=== PATIENT | female | born 1975 | race Caucasian/White ===

== ENCOUNTER 2019-08-25 19:04 | Emergency (ER) | payer SELFPAY ==
[~2019-08-25] VITALS: Ht 175.3 cm; Wt 126.4 kg
[2019-08-25] MEDS ORDERED: METH4TAB2 PO (21:05)
[2019-08-25] MEDS ORDERED: INDO50CA15 PO (21:05)
[2019-08-25] MEDS ORDERED: DOXY100C14 PO (21:05)
--- NOTE | 2019-08-25 21:05 | PHYS DOC ---
Past Medical History Past Medical History: No Pertinent History Past Surgical History: , Other Additional Past Surgical Histo: CARPAL TUNNEL SURGERY - BILATERAL WRISTS Smoking Status: Never Smoker Alcohol Use: None General Adult EDM: Chief Complaint: MULTIPLE COMPLAINTS HPI: HPI: Patient is a 43 year old female who presents with complaint of what she believes was an insect bite to her right forearm. She indicates that centrally there is a blister and surrounding it she has soft tissue swelling redness and a red halo around the site. She states that it has been painful. She denies any fever. She also complains of pain in her left shoulder that has been ongoing for the last couple of weeks and states that movement of the shoulder has become more and more painful. She denies any injuries to the shoulder. [] Review of Systems: Review of Systems: Constitutional: Denies fever or chills. [] Respiratory: Denies cough or shortness of breath. [] Cardiovascular: Denies chest pain or edema. [] Musculoskeletal: Complains of left shoulder pain. [] Integument: Complains of redness and warmth right forearm. [] Neurologic: Denies headache, focal weakness or sensory changes. [] Heart Score: Risk Factors: Risk Factors: DM, Current or recent (<one month) smoker, HTN, HLP, family history of CAD, obesity. Risk Scores: Score 0 - 3: 2.5% MACE over next 6 weeks - Discharge Home Score 4 - 6: 20.3% MACE over next 6 weeks - Admit for Clinical Observation Score 7 - 10: 72.7% MACE over next 6 weeks - Early Invasive Strategies Allergies: Allergies: Allergies Coded Allergies Type Severity Reaction Last Updated Verified No Known Drug Allergies 08/25/19 No Physical Exam: PE: Constitutional: Well developed, well nourished, no acute distress, non-toxic appearance. [] Neck: Normal range of motion, no tenderness, supple, no stridor. [] Cardiovascular: Regular rate and rhythm [] Lungs & Thorax: Bilateral breath sounds clear to auscultation [] Skin: Dorsal aspect of right forearm demonstrates an area measuring approximately 4 x 12 cm of soft tissue swelling, warmth, erythema and surrounded by reddish halo and small blister, centrally. [] Extremities: Examination of left shoulder demonstrates decreased range of motion due to pain. There is no tenderness in the shoulder [] Neurologic: Alert and oriented X 3, no focal deficits noted. [] Current Patient Data: Vital Signs: Vital Signs Date Time Temp Pulse Resp B/P (MAP) Pulse Ox O2 Delivery O2 Flow Rate FiO2 08/25/19 19:30 98.0 80 16 153/72 (99) 100 Room Air 98.0 EKG: EKG: [] Radiology/Procedures: Radiology/Procedures: [] Course & Med Decision Making: Course & Med Decision Making Pertinent Labs and Imaging studies reviewed. (See chart for details) [] Dragon Disclaimer: Dragon Disclaimer: This electronic medical record was generated, in whole or in part, using a voice recognition dictation system. Departure Departure Impression: Primary Impression: Insect bite Qualified Codes: S50.861A - Insect bite (nonvenomous) of right forearm, initial encounter; W57.XXXA - Bitten or stung by nonvenomous insect and other nonvenomous arthropods, initial encounter Additional Impression: Bursitis of left shoulder Disposition: HOME, SELF-CARE Condition: STABLE Referrals: NO PCP (PCP) Patient Instructions: Bursitis, Insect Bite, Shoulder Pain Scripts Doxycycline Monohydrate (DOXYCYCLINE MONOHYDRATE) 100 Mg Capsule 1 CAP PO BID, #20 CAP Prov: MARYAM PEREZ Jr. DO 08/25/19 Indomethacin (INDOMETHACIN) 50 Mg Capsule 1 CAP PO TID PRN for shoulder pain for 10 Days, #30 CAP 0 Refills with food Prov: MARYAM PEREZ Jr. DO 08/25/19 Methylprednisolone (MEDROL) 4 Mg Tab.ds.pk 1 PKG PO UD, #1 PKG Prov: MARYAM PEREZ Jr. DO 08/25/19 MARYAM PEREZ Jr. DO Aug 25, 2019 21:05
[2019-08-25 21:23] VITALS: BP 132/69
--- NOTE | 2019-08-25 21:34 | RAD ---
SHOULDER 2+V LEFT History: Reason: shoulder pain / Spl. Instructions: / History: Technique: 3 views left shoulder. Comparison: None. Findings: Normal alignment of the left glenohumeral and acromioclavicular joints. Increased density within the region of the rotator cuff, may indicate calcific tendinosis. No definite fracture. Impression: 1. No acute osseous abnormality. 2. Increased density within the region of the rotator cuff, may indicate calcific tendinosis. Electronically signed by: Loc Torres DO (08/25/2019 9:30 PM) AARON
== END 2019-08-25 21:26 | disposition home or self-care (01) ==
LOC: ER 19:04
DX: S50.861A Insect bite (nonvenomous) of right forearm, initial encounter (principal); M75.52 Bursitis of left shoulder; W57.XXXA Bitten or stung by nonvenomous insect and other nonvenomous arthropods, initial encounter; Y93.89 Activity, other specified; Y92.89 Other specified places as the place of occurrence of the external cause; Y99.8 Other external cause status
CPT/HCPCS: 73030; 99283

== ENCOUNTER 2019-08-31 13:53 | Emergency (ER) | payer SELFPAY ==
[~2019-08-31] VITALS: Ht 175.3 cm; Wt 125.8 kg
[~2019-08-31 13:53] MED LIST: DOXY100C14 PO; INDO50CA15 PO; METH4TAB2 PO
[2019-08-31 14:04] VITALS: BP 174/96
[2019-08-31] MEDS ORDERED: KETOROLAC 60 MG/2 ML VIAL. IM ONE (14:30)
--- NOTE | 2019-08-31 14:34 | PHYS DOC ---
Past Medical History Past Medical History: No Pertinent History Past Surgical History: , Other Additional Past Surgical Histo: CARPAL TUNNEL SURGERY - BILATERAL WRISTS Smoking Status: Current Every Day Smoker Additional Information: 03/12-05/12 ppd Alcohol Use: Occasionally General Adult EDM: Chief Complaint: SHOULDER INJURY HPI: HPI: Patient is a 43-year-old female coming in for left shoulder pain she reports that she was seen in the emergency department here on [address] and had a shoulder x- ray and was diagnosed with bursitis she reports that she was given a steroid and that improved the pain but once she finished the prescription the pain began again she describes the pain as a burning pain it is worse with movement she was also given a prescription for indomethacin which she reports that she has not taken she denies any chest pain or shortness of breath or dyspnea on exertion. Review of Systems: Review of Systems: Constitutional: Denies fever or chills. [] Eyes: Denies change in visual acuity. [] HENT: Denies nasal congestion or sore throat. [] Respiratory: Denies shortness of breath or dyspnea on exertion Cardiovascular: Denies chest pain or edema. [] GI: Denies abdominal pain, nausea, vomiting, bloody stools or diarrhea. [] : Denies dysuria. [] Musculoskeletal: Reporting left shoulder pain worse with movement Integument: Denies rash. [] Neurologic: Patient is reporting paresthesias in her left hand which she attributes to her carpal tunnel Endocrine: Denies polyuria or polydipsia. [] Lymphatic: Denies swollen glands. [] Psychiatric: Denies depression or anxiety. [] Heart Score: Risk Factors: Risk Factors: DM, Current or recent (<one month) smoker, HTN, HLP, family history of CAD, obesity. Risk Scores: Score 0 - 3: 2.5% MACE over next 6 weeks - Discharge Home Score 4 - 6: 20.3% MACE over next 6 weeks - Admit for Clinical Observation Score 7 - 10: 72.7% MACE over next 6 weeks - Early Invasive Strategies Current Medications: Current Medications Medications (Trade) Dose Ordered Sig/Alvarado Start Time Stop Time Status Last Admin Dose Admin Ketorolac Tromethamine (Toradol Im) 60 mg 1X ONCE 08/31/19 14:30 08/31/19 14:31 Allergies: Allergies: Allergies Coded Allergies Type Severity Reaction Last Updated Verified No Known Drug Allergies 08/25/19 No Physical Exam: PE: Constitutional: Well developed, well nourished, no acute distress, non-toxic appearance. [] Neck: Normal range of motion, no tenderness, supple, no stridor. [] Cardiovascular:Heart rate regular rhythm, no murmur [] Lungs & Thorax: Bilateral breath sounds clear to auscultation [] Skin: Warm, dry, no erythema, no rash. [] Back: No tenderness, no CVA tenderness. [] Extremities: Patient has left shoulder pain with lateral movement, she has no swelling or obvious deformity, good sensation, strong pulse, warm extremity, cap refill of less than 3 seconds Neurologic: Alert and oriented X 3, normal motor function, normal sensory function, no focal deficits noted. [] Psychologic: Affect normal, judgement normal, mood normal. [] Current Patient Data: Vital Signs: Vital Signs Date Time Temp Pulse Resp B/P (MAP) Pulse Ox O2 Delivery O2 Flow Rate FiO2 08/31/19 14:04 98.1 87 18 174/96 (122) 99 Room Air 98.1 EKG: EKG: [] Radiology/Procedures: Radiology/Procedures: [] Course & Med Decision Making: Course & Med Decision Making Pertinent Labs and Imaging studies reviewed. (See chart for details) [] Dragon Disclaimer: Amparo Disclaimer: This electronic medical record was generated, in whole or in part, using a voice recognition dictation system. Departure Departure Impression: Primary Impression: Left shoulder pain Qualified Codes: M25.512 - Pain in left shoulder; G89.29 - Other chronic pain Disposition: HOME, SELF-CARE Condition: STABLE Referrals: NO PCP (PCP) Patient Instructions: Shoulder Exercises, Generic, SportsMed, Shoulder Sprain Additional Instructions: Take indomethacin as prescribed it will not make you drowsy Justicifation of Admission Dx: Justifications for Admission: Justification of Admission Dx: No VERITO ROTH DO Aug 31, 2019 14:34
== END 2019-08-31 15:02 | disposition home or self-care (01) ==
LOC: ER 13:53
DX: M25.512 Pain in left shoulder (principal); G89.29 Other chronic pain; F17.200 Nicotine dependence, unspecified, uncomplicated; Z98.890 Other specified postprocedural states
CPT/HCPCS: 96372; 99283; J1885